=== PATIENT | female | born 1980 | race Caucasian/White ===

== ENCOUNTER 2017-03-23 06:52 | Day surgery (SDC) | payer OTHER ==
[~2017-03-23] VITALS: Ht 170.2 cm; Wt 55.0 kg
[~2017-03-23 06:52] MED LIST: IBUP600 PO; OXYC1SOL5 PO; PERI8.6T PO
[2017-03-23 07:16] VITALS: BP 102/66; PULSE 69; RESP 20; TEMP 98.2; O2SAT 97
[2017-03-23] MEDS ORDERED: SODIUM CHLOR 0.9% 1000 ML INJ 1,000 ML IV SCH (08:00)
[2017-03-23] MEDS ORDERED: GABA300C5 PO (08:03)
[2017-03-23] MEDS ORDERED: ALPR.25 PO (08:03)
[2017-03-23 08:24] LABS: AUTOMATED NEUTROPHIL # 1.9 TH/MM3 (1.8-7.7); BASOPHIL % 0.7 % (0.0-2.0); EOSINOPHIL # 0.1 TH/MM3 (0-0.4); EOSINOPHIL % 1.9 % (0.0-4.0); HEMATOCRIT 39.1 % (35.0-46.0); HEMO FLAGS DIFF FINAL; LYMPH % 48.2 % (9.0-44.0); LYMPHOCYTE # 2.2 TH/MM3 (1.0-4.8); MEAN CELL VOLUME 95.5 FL (80.0-100.0); MEAN CORPUSCULAR HEMOGLOBIN 31.6 PG (27.0-34.0); MEAN CORPUSCULAR HGB CONC 33.1 % (32.0-36.0); MONO % 7.8 % (0.0-8.0); NEUT % 41.4 % (16.0-70.0); PLATELET COUNT 161 TH/MM3 (150-450); RED BLOOD COUNT 4.09 MIL/MM3 (4.00-5.30); RED CELL DISTRIBUTION WIDTH 12.1 % (11.6-17.2); WHITE BLOOD COUNT 4.5 TH/MM3 (4.0-11.0)
[2017-03-23 08:32] LABS: APTT (PATIENT) 25.8 SEC (24.3-30.1); PROTHROMBIN TIME - PATIENT 10.9 SEC (9.8-11.6)
[2017-03-23 08:41] LABS: BICARBONATE 25.4 MEQ/L (21.0-32.0); POTASSIUM 4.3 MEQ/L (3.5-5.1)
--- NOTE | 2017-03-23 09:21 | PD.RAD ---
Post Procedure Progress Note Pre Procedure Diagnosis: (1) Distal paresthesia (2) Leg paresthesia Post Procedure Diagnosis: (1) Leg paresthesia (2) Distal paresthesia Procedure Date: March 23, 2017 Supervising Radiologist: Haseeb Leiva Anesthesia: Local Plan of Activity Patient to Unit: [facility] Patient Condition: Good Additional Comments: LP completed. Single puncture at L4/L5 24cc of clear CSF removed Pt. tolerated procedure well See PACS Report for procedural detail/treatment Haseeb Leiva MD March 23, 2017 09:21
[2017-03-23 09:25] VITALS: BP 96/63; PULSE 62; RESP 20; TEMP 97.9; O2SAT 98
[2017-03-23 09:30] VITALS: BP 96/63; PULSE 62; RESP 16; TEMP 97.9; O2SAT 98
[2017-03-23 10:34] LABS: GROSS BLOOD TUBE #1 0 (0); GROSS BLOOD TUBE #2 0 (0); GROSS BLOOD TUBE #3 0 (0); SUPERNATE COLOR TUBE #1 CLEAR (CLEAR); SUPERNATE COLOR TUBE #2 CLEAR (CLEAR); SUPERNATE COLOR TUBE #3 CLEAR (CLEAR); VOLUME TUBE # 1 5.2 ML; VOLUME TUBE # 3 5.9 ML; VOLUME TUBE # 4 6.1 ML; WBC TUBE #1 4 /MM3 (0-10)
[2017-03-23 10:35] LABS: CSF LYMPHOCYTES 100 %; CSF NEUTROPHILS 0 %; GROSS BLOOD TUBE #4 0 (0); SUPERNATE COLOR TUBE #4 CLEAR (CLEAR); VOLUME TUBE # 4 6.1 ML; WBC TUBE #4 2 /MM3 (0-10)
--- NOTE | 2017-03-23 11:08 | RADRPT ---
EXAM DATE/TIME: 03/23/2017 09:48 [place] COMPARISON: No previous studies available for comparison. INDICATIONS : Paresthesia, dysesthesia, hyperesthesia, a pins and needles sensation. MEDICAL HISTORY : 1. Muscle weakness 2. visual disturbance SURGICAL HISTORY : 1. breast reconstruction. ENCOUNTER: Initial ACUITY: 2 months PAIN SCORE: 0/10 LUMBAR PUNCTURE TIME: 0908 hours FLUORO TIME: 0.6 minutes IMAGE SERIES: 0 ACCESS LEVEL: L4-5 FLUID: 24 cc of clear CSF was collected and sent to the laboratory for analysis. PROCEDURE : 1. Fluoroscopic guided lumbar puncture. The risks, benefits and alternatives to the procedure were explained and verbal and written consent w as obtained. The site was prepped in sterile fashion. Full sterile technique was used, including ca p, mask, sterile gloves and gown and a large sterile sheet. Hand hygiene and 2% chlorhexidine and/or betadine/alcohol prep was utilized per protocol for cutaneous antisepsis. The skin and subcutaneous tissues were infiltrated with local anesthetic solution. With fluoroscopic guidance the lumbar thecal sac was punctured at the level above. The fluid describ ed above was removed without difficulty. The patient tolerated the procedure well and there were no complications. CONCLUSION: Uncomplicated fluoroscopically guided lumbar puncture. Haseeb Leiva MD on March 23, 2017 at 11:05 Board Certified Radiologist. This report was verified electronically.
[2017-03-23 11:30] VITALS: BP 99/69; PULSE 66; RESP 16; O2SAT 98
[2017-03-25 15:28] LABS: ALBUMIN SERUM 4360 mg/dL (3200 - 4800); IGG CSF 1.5 mg/dL (<=8.1); IGG INDEX CSF 0.39 (<=0.85); IGG SERUM 988 mg/dL (767 - 1590); IGG/ALBUMIN CSF 0.09 (<=0.21); IGG/ALBUMIN SERUM 0.23 (<=0.40); OLIGOCLONAL BANDING CSF 0 bands (()); OLIGOCLONAL BANDING INTERPRET 0 bands (<4); OLIGOCLONAL BANDING SERUM 0 bands (())
[2017-03-25 17:01] LABS: LYME IGG IMMUNOBLOT CSF None Detected bands (None Detected); LYME IGM IMMUNOBLOT CSF None Detected bands (None Detected)
[2017-03-26 09:35] LABS: CSF CRYPTOCOCCUS AG CONF ND (NOT DETECTD)
[2017-03-26] MEDS ORDERED: ZOLO50TA PO (10:11)
[2017-03-26] MEDS ORDERED: GABA100C4 PO (10:11)
[2017-03-26 17:53] LABS: VDRL CSF NON-REACTIVE (())
[2017-05-26] MEDS ORDERED: TENI5INJ IM (14:17)
[2017-05-26] MEDS ORDERED: CEPH-460 PO (14:20)
== END 2017-03-23 11:35 | disposition home or self-care (01) ==
LOC: HROP 06:52 → HRIP 06:57 → HROP 11:35
PROVIDERS: ATTEND Psychiatry & Neurology Vascular Neurology
DX: R20.8 Other disturbances of skin sensation (principal); H53.9 Unspecified visual disturbance; R29.2 Abnormal reflex; Z01.818 Encounter for other preprocedural examination
CPT/HCPCS: 62270; 77003; 80048; 82040; 82042; 82784; 82945; 83873; 83916; 84157; 85025; 85610; 85730; 86403; 86592; 86618; 87015; 87070; 87102; 87116; 87205; 87206; 87801; 89051

== ENCOUNTER → 2017-03-26 | Day surgery (SDC) | payer OTHER ==
[~2017-03-26] VITALS: Ht 170.2 cm; Wt 54.5 kg
[~2017-03-26] MED LIST changes: +ALPR.25 PO; +CEPH-460 PO; +CHLORHEXIDINE GLUCONATE 2 % 1 PACK (2 CLOTHS) TOPICAL PRN; +GABA100C4 PO; +GABA300C5 PO; -IBUP600 PO; +INSULIN HUMAN REGULAR 1,000 UNITS/10 ML VIAL SQ PRN; +LACTATED RINGER'S 1000 ML IV PRN; +METOPROLOL TARTRATE 25 MG TAB PO PRN; -OXYC1SOL5 PO; -PERI8.6T PO; +POVIDONE IODINE 5% (ANTISEPSIS KIT) 4 APPLICATIONS EACH NARE PRN; +SODIUM CHLORID 0.9% 500 ML IV PRN; +TENI5INJ IM; +ZOLO50TA PO
[2017-03-26 10:18] VITALS: BP 102/60; PULSE 65; RESP 18; TEMP 98.1; O2SAT 99
[2017-03-26 13:05] VITALS: BP 110/62; PULSE 16; RESP 18; TEMP 97.6; O2SAT 96
== END | disposition home or self-care (01) ==
LOC: HSDC 09:16
PROVIDERS: ATTEND Anesthesiology
DX: G97.1 Other reaction to spinal and lumbar puncture (principal)
CPT/HCPCS: 62273

== ENCOUNTER 2017-09-23 09:56 | Observation (INO) | payer OTHER ==
[~2017-09-23] VITALS: Ht 170.2 cm; Wt 54.8 kg
[~2017-09-23 09:56] MED LIST changes: -CHLORHEXIDINE GLUCONATE 2 % 1 PACK (2 CLOTHS) TOPICAL PRN; -GABA300C5 PO; -INSULIN HUMAN REGULAR 1,000 UNITS/10 ML VIAL SQ PRN; -LACTATED RINGER'S 1000 ML IV PRN; -METOPROLOL TARTRATE 25 MG TAB PO PRN; -POVIDONE IODINE 5% (ANTISEPSIS KIT) 4 APPLICATIONS EACH NARE PRN; -SODIUM CHLORID 0.9% 500 ML IV PRN; -TENI5INJ IM
--- NOTE | 2017-09-23 10:17 | MH ---
cc: EVA TAN M.D. DATE OF ADMISSION: 09/23/2017 1981 HISTORY OF PRESENT ILLNESS The patient is a 37-year-old female, 2, para 1, who presented for amenorrhea, positive test, was followed. The patient's beta hCG levels had slowly risen in a non exponential fashion. Most recently beta hCG was 1520 on September 20. Comparative ultrasound revealed a left small cystic lesion in the vicinity of the fallopian tube and ovary. There is no free fluid. There was no intrauterine gestation identified. The patient had been counseled to concerns for ectopic and due to the poor progression of her beta hCG and low progesterone and the presence of a cystic mass, ectopic was implicated and recommendation for treatment was discussed. The patient elected for single dose methotrexate. PAST MEDICAL HISTORY The patient denies any systemic or chronic disease states. ALLERGIES She has no known drug allergies. MEDICATIONS Current medications are multivitamins daily. The patient currently denies any nausea, vomiting. She is having mild vaginal bleeding but no significant abdominal pain, no diarrhea, no fever or chills. OBSTETRICAL HISTORY Full-term vaginal delivery in 2014. MEDICAL HISTORY Stated above. PAST SURGICAL HISTORY Status post breast augmentation. SOCIAL HISTORY Patient is , stable social relationship. The patient denies use of alcohol, tobacco or illicit substances. PHYSICAL EXAMINATION GENERAL: The patient is a well-appearing, well-nourished female in no acute distress. VITAL SIGNS: Vital signs are normal. She is afebrile. Blood pressure is 104/60. The patient is 5 feet 7 inches, weighs 125 pounds. Her body surface area is 1.64. HEENT: Shows no adenopathy, thyromegaly. LUNGS: Lungs are clear in all enciso. CARDIAC: Regular rate and rhythm. ABDOMEN: Abdomen is flat, soft, nontender. No rebound, guarding. Normal bowel sounds. PELVIC: Pelvic exam is deferred. EXTREMITIES: Symmetrical. Full range of motion. NEUROLOGIC: Exam is nonfocal. ASSESSMENT Patient with suspected ectopic of the left adnexa. PLAN Plan for single dose methotrexate 50 mg/m2 calculated dose of 75 mg. Orders will include CBC, blood type, CMP and will be followed with serial betas. MD LIZ David/TLRich /9:44 AM /9:53 AM
[2017-09-23 10:32] VITALS: PULSE 65
[2017-09-23 10:33] VITALS: BP 100/65; PULSE 65; RESP 18; TEMP 97.8; O2SAT 100
[2017-09-23] MEDS ORDERED: METHOTREXATE IM ONE (12:00)
[2017-09-23] MEDS ORDERED: IBUPROFEN 600 MG TAB PO PRN ×2 (12:00)
[2017-09-23] MEDS ORDERED: ZOLPIDEM TARTRATE 5 MG TAB PO PRN ×2 (12:45)
[2017-09-23] MEDS ORDERED: ONDANSETRON HCL 4 MG/2 ML VIAL IV PUSH PRN ×2 (12:45)
[2017-09-23 14:52] LABS: AUTOMATED NEUTROPHIL # 2.8 TH/MM3 (1.8-7.7); BASOPHIL % 0.5 % (0.0-2.0); EOSINOPHIL # 0.1 TH/MM3 (0-0.4); EOSINOPHIL % 1.4 % (0.0-4.0); HEMATOCRIT 38.9 % (35.0-46.0); HEMOGLOBIN 13.3 GM/DL (11.6-15.3); LYMPH % 40.1 % (9.0-44.0); LYMPHOCYTE # 2.2 TH/MM3 (1.0-4.8); MEAN CELL VOLUME 98.2 FL (80.0-100.0); MEAN CORPUSCULAR HEMOGLOBIN 33.6 PG (27.0-34.0); MEAN CORPUSCULAR HGB CONC 34.2 % (32.0-36.0); MEAN PLATELET VOLUME 8.6 FL (7.0-11.0); MONO % 7.6 % (0.0-8.0); MONOCYTE # 0.4 TH/MM3 (0-0.9); NEUT % 50.4 % (16.0-70.0); PLATELET COUNT 173 TH/MM3 (150-450); RED BLOOD COUNT 3.96 MIL/MM3 (4.00-5.30); RED CELL DISTRIBUTION WIDTH 12.3 % (11.6-17.2); WHITE BLOOD COUNT 5.6 TH/MM3 (4.0-11.0)
[2017-09-23 15:13] LABS: ALBUMIN 3.9 GM/DL (3.4-5.0); AST (GOT) 17 U/L (15-37); BICARBONATE 28.4 MEQ/L (21.0-32.0); BLOOD UREA NITROGEN 14 MG/DL (7-18); CALCIUM 8.6 MG/DL (8.5-10.1); CHLORIDE 105 MEQ/L (98-107); CREATININE 0.65 MG/DL (0.50-1.00); GLOMERULAR FILTRATION RATE 103 ML/MIN (>89); GLUCOSE,RANDOM 92 MG/DL (74-106); SODIUM (NA) 139 MEQ/L (136-145)
[2017-09-23 15:30] LABS: ALKALINE PHOSPHATASE 49 U/L (45-117); ALT (GPT) 23 U/L (10-53); TOTAL BILIRUBIN ADULT 0.4 MG/DL (0.2-1.0); TOTAL PROTEIN 7.4 GM/DL (6.4-8.2)
[2017-09-23 15:55] VITALS: BP 94/66; PULSE 109; RESP 18; TEMP 97; O2SAT 97
[2017-09-23 20:27] VITALS: BP 100/67; PULSE 66; RESP 18; TEMP 98.1; O2SAT 96
[2017-09-23 20:38] VITALS: PULSE 62
[2017-09-24 00:23] VITALS: PULSE 63
[2017-09-24 00:27] VITALS: BP 87/50; PULSE 71; RESP 18; TEMP 97.9; O2SAT 98
[2017-09-24 04:16] VITALS: PULSE 56
[2017-09-24 06:15] VITALS: BP 84/53; PULSE 83; RESP 17; TEMP 97.9; O2SAT 95
[2017-09-24 09:04] VITALS: BP 85/55; PULSE 62; RESP 18; TEMP 98.3; O2SAT 99
--- NOTE | 2017-09-24 09:39 | HHI.PR ---
Subjective Remarks Doing well,has mild nausea,no pain or bleeding, eating well. Patients has had a resting low bp but no orthostatic symptoms ,normal pulse Objective Vital Signs Vital Signs Date Time Temp Pulse Resp B/P (MAP) Pulse Ox O2 Delivery O2 Flow Rate FiO2 09/24/17 09:04 98.3 62 18 85/55 (65) 99 09/24/17 06:15 97.9 83 17 84/53 (63) 95 09/24/17 04:16 56 09/24/17 00:27 97.9 71 18 87/50 (62) 98 09/24/17 00:23 63 09/23/17 20:38 62 09/23/17 20:27 98.1 66 18 100/67 (78) 96 09/23/17 15:55 97.0 109 18 94/66 (75) 97 09/23/17 10:33 97.8 65 18 100/65 (77) 100 09/23/17 10:32 65 I/O 09/23/17 09/23/17 09/23/17 09/24/17 09/24/17 09/24/17 07:00 15:00 23:00 07:00 15:00 23:00 Intake Total 1000 ml Balance 1000 ml Intake Oral 1000 ml # Voids 2 Result Diagram: 09/23/17 1433 09/23/17 1433 Objective Remarks Chest is clear, regular rate and rhythm. Abdomen is soft and non-distended. Incision is clean and dry. Ext no CCE. A/P Assessment and Plan HD#2, Left ectopic,recieved MTX . Stable, has a low baseline BP, is NOT orthostatic ,will discharge home on pelvic rest, follow with [facility] [place] in 1 week and return office visit. Chris Perez MD Sep 24, 2017 09:39
--- NOTE | 2017-09-24 09:39 | HHI.PR ---
Subjective Remarks Doing well,has mild nausea,no pain or bleeding, eating well. Patients has had a resting low bp but no orthostatic symptoms ,normal pulse Objective Vital Signs Vital Signs Date Time Temp Pulse Resp B/P (MAP) Pulse Ox O2 Delivery O2 Flow Rate FiO2 09/24/17 09:04 98.3 62 18 85/55 (65) 99 09/24/17 06:15 97.9 83 17 84/53 (63) 95 09/24/17 04:16 56 09/24/17 00:27 97.9 71 18 87/50 (62) 98 09/24/17 00:23 63 09/23/17 20:38 62 09/23/17 20:27 98.1 66 18 100/67 (78) 96 09/23/17 15:55 97.0 109 18 94/66 (75) 97 09/23/17 10:33 97.8 65 18 100/65 (77) 100 09/23/17 10:32 65 I/O 09/23/17 09/23/17 09/23/17 09/24/17 09/24/17 09/24/17 07:00 15:00 23:00 07:00 15:00 23:00 Intake Total 1000 ml Balance 1000 ml Intake Oral 1000 ml # Voids 2 Result Diagram: 09/23/17 1433 09/23/17 1433 Objective Remarks Chest is clear, regular rate and rhythm. Abdomen is soft and non-distended. Incision is clean and dry. Ext no CCE. A/P Assessment and Plan HD#2, Left ectopic,recieved MTX . Stable, has a low baseline BP, is NOT orthostatic ,will discharge home on pelvic rest, [facility] with [facility] in [facility] week and return office visit. Chris Perez MD Sep 24, 2017 09:39
--- NOTE | 2017-09-24 09:39 | HHI.PR ---
Subjective Remarks Doing well,has mild nausea,no pain or bleeding, eating well. Patients has had a resting low bp but no orthostatic symptoms ,normal pulse Objective Vital Signs Vital Signs Date Time Temp Pulse Resp B/P (MAP) Pulse Ox O2 Delivery O2 Flow Rate FiO2 09/24/17 09:04 98.3 62 18 85/55 (65) 99 09/24/17 06:15 97.9 83 17 84/53 (63) 95 09/24/17 04:16 56 09/24/17 00:27 97.9 71 18 87/50 (62) 98 09/24/17 00:23 63 09/23/17 20:38 62 09/23/17 20:27 98.1 66 18 100/67 (78) 96 09/23/17 15:55 97.0 109 18 94/66 (75) 97 09/23/17 10:33 97.8 65 18 100/65 (77) 100 09/23/17 10:32 65 I/O 09/23/17 09/23/17 09/23/17 09/24/17 09/24/17 09/24/17 07:00 15:00 23:00 07:00 15:00 23:00 Intake Total 1000 ml Balance 1000 ml Intake Oral 1000 ml # Voids 2 Result Diagram: 09/23/17 1433 09/23/17 1433 Objective Remarks Chest is clear, regular rate and rhythm. Abdomen is soft and non-distended. Incision is clean and dry. Ext no CCE. A/P Assessment and Plan HD#2, Left ectopic,recieved MTX . Stable, has a low baseline BP, is NOT orthostatic ,will discharge home on pelvic rest, [facility] and return office visit. Chris Perez MD Sep 24, 2017 09:39
[2017-09-24] MEDS ORDERED: ONDA4TAB7 SL ×2 (09:41)
--- NOTE | 2017-09-24 09:42 | HHI.DCPOC ---
Discharge Care Plan Your Health Problems Are: Abdominal pain Nausea and/or vomiting Pelvic pain Report Symptoms to Your Doctor -Temperature above 100.5 degrees -Redness, of incision or excessive or foul smelling drainage -Unusual pain or calf pain -Increased vaginal bleeding -Painful or difficulty urinating -Feelings of extreme sadness or anxiety after 2 weeks Goals to Promote Your Health * To prevent worsening of your condition and complications * To maintain your health at the optimal level Directions to Meet Your Goals Take your medications as prescribed Follow your dietary instruction Follow activity as directed Ensure plenty of rest for recovery Drink fluids for hydration Keep your appointments as scheduled Take your immunizations and boosters as scheduled If your symptoms worsen call your PCP, if no PCP go to Urgent Care Center or Emergency Room Smoking is Dangerous to Your Health. Avoid second hand smoke Call the 24-hour crisis hotline for domestic abuse at Chris Perez MD Sep 24, 2017 09:41
[2017-09-24 10:36] VITALS: BP 103/75
== END 2017-09-24 10:46 | disposition home or self-care (01) ==
LOC: HCIS 09:56
PROVIDERS: ADMIT Obstetrics & Gynecology; ATTEND Obstetrics & Gynecology
DX: O00.102 Left tubal pregnancy without intrauterine pregnancy (principal)
CPT/HCPCS: 80053; 84703; 85025; 96374; 96375; G0378; J2405; J9250